=== PATIENT | male | born 1955 | race Caucasian/White ===

== ENCOUNTER 2020-03-28 21:08 | Emergency (ER) | payer OTHER ==
[~2020-03-28] VITALS: Ht 190.5 cm; Wt 90.7 kg
[2020-03-28 21:36] LABS: ABSOLUTE BASOPHILS 0.1 thou/uL (0.0-0.2); ABSOLUTE EOSINOPHILS 0.4 thou/uL (0.0-0.7); ABSOLUTE LYMPHOCYTES 2.4 thou/uL (0.8-5.3); ABSOLUTE MONOCYTES 0.5 thou/uL (0.0-1.2); ABSOLUTE NEUTROPHILS 3.4 thou/uL (1.6-8.1); BASOPHILS 1.3 %; EOSINOPHILS 5.4 %; HEMATOCRIT 37.5 % (42.0-52.0); LYMPHOCYTES 35.8 %; MCH 34.5 pg (26.0-34.0); MCHC 34.7 g/dL (28.0-37.0); MCV 99.3 fL (80.0-100.0); MONOCYTES 7.1 %; MPV 8.2 fl. (7.2-11.1); NUCLEATED RBCS 0 /100WBC; PLATELET COUNT* 213 thou/uL (150-400); POLYS 50.4 %; RBC 3.78 mil/uL (4.50-6.00); RDW-CV 14.2 % (10.5-14.5); WBC 6.7 thou/uL (4.0-11.0)
[2020-03-28 21:41] LABS: CALCIUM 8.7 mg/dL (8.5-10.1); POTASSIUM 3.4 mmol/L (3.5-5.1)
[2020-03-28 21:46] LABS: ALBUMIN 4.1 g/dL (3.4-5.0); TOTAL BILIRUBIN 0.4 mg/dL (<0.1-1.0); TOTAL PROTEIN 7.6 g/dL (6.4-8.2)
[2020-03-28 21:53] LABS: ALCOHOL 311 mg/dL (<10); SALICYLATE 2.8 mg/dL (2.8-20.0)
[2020-03-28 21:54] LABS: ACETAMINOPHEN < 2 ug/mL (10-30)
[2020-03-29 01:41] LABS: URINE BILIRUBIN NEGATIVE (Negative); URINE BLOOD TRACE (Negative); URINE CLARITY CLEAR; URINE COLOR YELLOW; URINE GLUCOSE-RANDOM NEGATIVE (Negative); URINE KETONES NEGATIVE (Negative); URINE LEUKOCYTES-REFLEX NEGATIVE (Negative); URINE NITRITE-REFLEX NEGATIVE (Negative); URINE PROTEIN TRACE (Negative); URINE UROBILINOGEN 0.2 E.U./dl (0.2-1.0)
[2020-03-29 01:49] LABS: AMP/METHAMP Negative (Negative); BARBITURATES Negative (Negative); BENZODIAZEPINES Negative (Negative); COCAINE Negative (Negative); METHADONE Negative (Negative); OPIATES Negative (Negative); PCP Negative (Negative); THC Negative (Negative)
[2020-03-29 09:09] VITALS: BP 148/94
== END 2020-03-29 09:10 | disposition home or self-care (01) ==
LOC: M.ERS 21:08
PROVIDERS: Emergency Medicine
DX: F10.129 Alcohol abuse with intoxication, unspecified (principal); R45.851 Suicidal ideations; Z88.6 Allergy status to analgesic agent; Y90.8 Blood alcohol level of 240 mg/100 ml or more